=== PATIENT | female | born 1990 | race Caucasian/White ===

== ENCOUNTER 2018-07-25 16:36 | Emergency (ER) | payer OTHER ==
[~2018-07-25] VITALS: Ht 160 cm; Wt 55.3 kg
== END 2018-07-25 19:00 | disposition home or self-care (01) ==
LOC: ER 16:36
DX: B34.9 Viral infection, unspecified (principal)

== ENCOUNTER → 2018-12-20 | Emergency (ER) | payer OTHER ==
[~2018-12-20] VITALS: Ht 160 cm; Wt 57.2 kg
== END | disposition left against medical advice (07) ==
LOC: ER 12:03
DX: Z53.20 Procedure and treatment not carried out because of patient's decision for unspecified reasons (principal)

== ENCOUNTER 2022-01-18 12:51 | Emergency (ER) | payer OTHER ==
[~2022-01-18] VITALS: Ht 160 cm; Wt 56.2 kg
== END 2022-01-18 13:49 | disposition home or self-care (01) ==
LOC: ER 12:51
DX: U07.1 COVID-19 (principal); B34.8 Other viral infections of unspecified site

== ENCOUNTER 2024-10-03 10:28 | Emergency (ER) | payer OTHER ==
[~2024-10-03] VITALS: Ht 160 cm; Wt 61.2 kg
[2024-10-03] MEDS ORDERED: KETOROLAC TROMETHAMINE 15 MG VIAL IM STA (14:21)
[2024-10-03] MEDS ORDERED: ORPHENADRINE CITRATE 30 MG/ML AMPUL IM STA (14:22)
[2024-10-03] MEDS ORDERED: BACLOFEN10 MG PO (16:58)
[2024-10-03] MEDS ORDERED: DICLOFENAC SODI75 MG PO (16:58)
== END 2024-10-03 17:23 | disposition home or self-care (01) ==
LOC: ER 10:28
DX: M62.830 Muscle spasm of back (principal)

== ENCOUNTER 2024-11-22 13:23 | Emergency (ER) | payer OTHER ==
[~2024-11-22] VITALS: Ht 160 cm; Wt 61.7 kg
[~2024-11-22 13:23] MED LIST: BACLOFEN10 MG PO; DICLOFENAC SODI75 MG PO
[2024-11-22] MEDS ORDERED: ACETAMINOPHEN 500 MG GEL..CAP PO ONE ×2 (14:23→14:30)
[2024-11-22 14:38] LABS: BASO % 0.6 % (0.1-1.2); EOS # 0.16 (0.04-0.54); EOS % 2.4 % (0.7-7.0); LYMPH # 2.33 (1.18-3.74); LYMPH % 35.5 % (19.3-53.1); MEAN PLATELET VOLUME 10.40 fl (9.4-12.4); MONO # 0.36 (0.24-0.82); MONO % 5.5 % (4.7-12.5); NEUT # 3.63 (1.56-6.13); NEUT % 55.2 % (34.0-71.1); RED CELL DISTRIBUTION WIDTH 11.8 % (11.6-14.4)
[2024-11-22 16:19] LABS: COVID-19 AG NEGATIVE (NEGATIVE)
[2024-11-22] MEDS ORDERED: BUTALB/ACETAMINOPHEN/CAFFEINE 1 TAB TABLET PO ONE ×2 (17:30→17:33)
== END 2024-11-22 17:42 | disposition home or self-care (01) ==
LOC: ER 13:25
PROVIDERS: General Practice
DX: U09.9 Post COVID-19 condition, unspecified (principal); Z20.822 Contact with and (suspected) exposure to COVID-19